=== PATIENT | male | born 1995 ===

== ENCOUNTER 2019-10-03 07:14 | Emergency (ER) | payer OTHER ==
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
[2019-10-03 11:14] LABS: Basophils % (Auto) 0.6 % (0.0-1.8); Eosinophils # (Auto) 0.4 K/mm3 (0.0-0.4); Eosinophils % (Auto) 6.4 % (0.0-4.3); Hematocrit 44.9 % (35.5-45.6); Hemoglobin 15.3 gm/dl (11.8-15.2); Lymphocytes # (Auto) 1.5 K/mm3 (1.2-5.4); Lymphocytes % (Auto) 22.6 % (13.4-35.0); Mean Corpuscular HGB Conc 34 % (32-34); Mean Corpuscular Volume 90 fl (84-94); Monocytes # (Auto) 0.4 K/mm3 (0.0-0.8); Monocytes % (Auto) 6.1 % (0.0-7.3); Platelet Count 187 K/mm3 (140-440); Red Cell Distribution Width 12.4 % (13.2-15.2)
[2019-10-03 11:39] LABS: Alanine Aminotransferase 12 units/L (7-56); Albumin 4.6 g/dL (3.9-5); BUN/Creatinine Ratio 18; Blood Urea Nitrogen 16 mg/dL (9-20); Hemolysis Index 18
[2019-10-03 11:40] LABS: Bilirubin,Direct < 0.2 mg/dL (0-0.2)
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
[2019-10-03 14:41] VITALS: BP 99/61
== END 2019-10-03 14:29 | disposition home or self-care (01) ==
LOC: ED 07:14
DX: R07.81 Pleurodynia (principal); Z79.1 Long term (current) use of non-steroidal anti-inflammatories (NSAID); Z79.899 Other long term (current) drug therapy; V49.49XA Driver injured in collision with other motor vehicles in traffic accident, initial encounter; Y92.410 Unspecified street and highway as the place of occurrence of the external cause; Y93.89 Activity, other specified; Y99.8 Other external cause status
CPT/HCPCS: 36415; 71101; 74177; 80048; 80076; 83690; 85025; 99284; Q9967